=== PATIENT | female | born 1980 | race Two or more races ===

== ENCOUNTER 2024-11-02 22:18 | Emergency (ER) | payer MEDICAID, SELFPAY ==
[2024-11-02 22:43] VITALS: BP 148/83; PULSE 73; RESP 16; TEMP 36.9; O2SAT 99
--- NOTE | 2024-11-02 22:50 | PD.EDALLER ---
ED Allergic Reaction RME/HPI General Chief complaint: Allergic Reaction Stated complaint: HIVES, ITCHING Time Seen by Provider: 11/02/24 22:48 Arrival date/time: 11/02/24 22:18 44F with no significant PMH presents to ED with several days of generalized itchy rash. No URI symptoms. Possibly new soap. Limitations: no limitations Related Data Allergies Allergy/AdvReac Type Severity Reaction Status Date / Time No Known Allergies Allergy Verified 10/20/22 20:08 Review of Systems Review of Systems Systems Reviewed: All systems reviewed, normal except as documented Integumentary/Breasts Skin/Breast: Reports as per HPI, Reports pruritus and Reports rash Past Medical History Social History SMOKING STATUS: Never smoker ED Exam General Limitations: Present no limitations General appearance: Present alert and in no apparent distress Head Head exam: Present atraumatic Neck Neck exam: Present normal inspection, full ROM and trachea midline Chest Chest inspection: Present normal inspection and symmetric chest wall rise Extremities Exam Extremities exam: Present normal inspection and full ROM Back Exam Back exam: Present normal inspection and full ROM Neurological Exam Neurological exam: Present alert and oriented X3 Psychiatric Psychiatric exam: Present normal affect and normal mood Skin Skin exam: Present warm, dry, intact, normal color and rash Course Quality Measures none Orders Category Date Time Status Dexamethasone Inj [Decadron Inj] Med 11/02/24 22:49 Discontinued 10 mg PO X1 ONE DiphenhydrAMINE [Benadryl] Med 11/02/24 22:49 Discontinued 25 mg PO X1 ONE Famotidine [Pepcid] Med 11/02/24 22:49 Discontinued 20 mg PO X1 ONE Vital Signs Vital signs: Vital Signs Temperature 98.4 F 11/02/24 22:43 Pulse Rate 73 11/02/24 22:43 Respiratory Rate 16 11/02/24 22:43 Blood Pressure 148/83 H 11/02/24 22:43 Pulse Oximetry (%) 99 11/02/24 22:43 Oxygen Delivery Method Room Air 11/02/24 22:43 O2 at 99% on RA and WNLs Allergic Reaction MDM Narrative MDM Narrative:: 44F with no significant PMH presents to ED with several days of generalized itchy rash. No URI symptoms. Possibly new soap. Physical exam reveals generalized rash, some urticarial, others not. Normal WOB. Patient is afebrile, calm, and alert. Marinat edilmad. Patient data External records reviewed:: [facility] previous records Clinical information provided by:: patient Social determinants that could affect healthcare access:: none Patient has the following chronic illnesses:: none How is presenting disease/condition affected by chronic disease/condition?: no chronic disease Evaluation data The following diagnostics were reviewed and interpreted by me:: other (specify) (none) Lab and/or radiology exams considered but not ordered:: not ordered Interpretation Summary: n/a Medications / Prescriptions Medications or Prescriptions considered but not ordered:: ordered Medication administrations:: Medication Administration History Discontinued Medications Dexamethasone Sodium Phosphate (Dexamethasone Sod Phos Inj 10 Mg/Ml Vial) 10 mg PO X1 ONE Stop: 11/02/24 22:50 Last Admin: 11/02/24 23:11 Dose: 10 mg Documented By: UMESH Diphenhydramine HCl (Diphenhydramine 25 Mg Capsule) 25 mg PO X1 ONE Stop: 11/02/24 22:50 Last Admin: 11/02/24 23:11 Dose: 25 mg Documented By: UMESH Famotidine (Famotidine 20 Mg Tablet) 20 mg PO X1 ONE Stop: 11/02/24 22:50 Last Admin: 11/02/24 23:11 Dose: 20 mg Documented By: UMESH above Consultations Consultation(s) initiated? (list below): No Diagnosis Differential Diagnosis allergic reaction: anaphylaxis, allergic reaction, angioedema, contact dermatitis, adverse reaction to drug, viral enanthem, urticaria and other (dermatitis) Most likely diagnosis given after review of the tests above:: dermatitis Admission Indicated Admission indicated?: not indicated Admission Request Was there a request for admission?: No Disposition Plan Disposition Plan: other (specify) (eloped) Discharge Plan Plan Patient Disposition: Elopement Prescriptions/Referrals Referrals: No Primary/Family,Physician [Primary Care Provider] - In 1 week Problem List Clinical Impression: Dermatitis Patient/Caregiver Discharge Instructions Print Language: Upper Sorbian TAYLOR/GILMA Supervising Physician RADHA Supervising Physician: Dr. Dacosta
[2024-11-02] MEDS: DEXAMETHASONE SOD PHOS INJ 10 MG/ML VIAL PO (23:11)
[2024-11-02] MEDS: FAMOTIDINE 20 MG TABLET PO (23:11)
== END 2024-11-02 23:45 | disposition left against medical advice (07) ==
LOC: SERX 23:30
PROVIDERS: Emergency Provider Emergency Medicine
DX: L30.9 Dermatitis, unspecified (principal); Z53.29 Procedure and treatment not carried out because of patient's decision for other reasons
CPT/HCPCS: 99283; J1100; A9270

== ENCOUNTER 2024-11-07 15:56 | Emergency (ER) | payer MEDICAID, SELFPAY ==
[2024-11-07 16:02] VITALS: BP 129/87; PULSE 89; RESP 16; TEMP 36.9; O2SAT 99; BMI 26.0
--- NOTE | 2024-11-07 16:11 | PD.EDRME ---
Rapid Medical Screening Exam RME Arrival date/time: 11/07/24 15:56 44-year-old female presents emergency department today for complaints of pruritic rash ongoing for more than a week Chief Complaint: Skin/Abscess/Foreign Body Vital signs: Vital Signs Temperature 98.4 F 11/07/24 16:02 Pulse Rate 89 11/07/24 16:02 Respiratory Rate 16 11/07/24 16:02 Blood Pressure 129/87 H 11/07/24 16:02 Pulse Oximetry (%) 99 11/07/24 16:02 Oxygen Delivery Method Room Air 11/07/24 16:02
[2024-11-07 16:21] LABS: Basophils # (Auto) 0.1 Thou/mm3 (0.0-0.2); Basophils % (Auto) 1 % (0-2.5); Eosinophils # (Auto) 0.8 Thou/mm3 (0.0-0.5); Eosinophils % (Auto) 8 % (0-10); Hematocrit 38.7 % (36.0-46.0); Hemoglobin 13.7 g/dL (12.0-16.0); Immature Granulocytes Auto 0.02 Thou/mm3 (0.00-0.00); Lymphocytes # (Auto) 2.8 Thou/mm3 (1.0-4.8); Lymphocytes % (Auto) 28 % (10-50); Mean Corpuscular HGB Conc 35.4 g/dl (31.0-37.0); Mean Corpuscular Hemoglobin 29.1 pg (25.0-35.0); Mean Corpuscular Volume 82 fL (80-100); Monocytes # (Auto) 0.7 Thou/mm3 (0.0-0.8); Monocytes % (Auto) 7 % (0-12); Neutrophils # (Auto) 5.6 Thou/mm3 (1.8-7.7); Neutrophils % (Auto) 56 % (37-80); Nucleated Red Blood Cell # 0.00 Thou/mm3 (0.00-0.00); Nucleated Red Blood Cell % 0 /100 WBC (0); Platelet Count 216 Thou/mm3 (140-440); RDW Standard Deviation 39.1 fL (36.4-46.3); Red Blood Count 4.70 Miln/mm3 (4.00-5.20); White Blood Count 10.1 Thou/mm3 (3.6-11.0)
[2024-11-07] MEDS: DEXAMETHASONE SOD PHOS INJ 10 MG/ML VIAL IM (16:25)
[2024-11-07] MEDS: FAMOTIDINE 20 MG TABLET 40 MG PO (16:25)
[2024-11-07 16:39] LABS: Alanine Aminotransferase 31 U/L (10-49); Albumin, Serum 4.3 gm/dL (3.5-5.0); Albumin/Globulin Ratio 1.7 (1.2-2.2); Alkaline Phosphatase 91 U/L (46-116); Anion Gap 10 (7-16); Aspartate Amino Transferase 26 U/L (0-34); BUN/Creatinine Ratio 13 Ratio (12-20); Bilirubin,Total 0.4 mg/dL (0.3-1.2); Blood Urea Nitrogen 9 mg/dL (9-23); Calcium 9.4 mg/dL (8.3-10.6); Calcium (Corrected) 9.4 mg/dL (8.5-10.1); Carbon Dioxide 27.2 mMol/L (20.0-31.0); Chloride 101 mMol/L (98-107); Creatinine (Component) 0.7 mg/dL (0.6-1.3); Estimated Creatinine Clearance 86.1 mL/min (>60); Globulin 2.5 gm/dL (2.3-3.5); Glucose 159 mg/dL (74-106); Osmolality,Calculated 277 (275-295); Potassium 3.6 mMol/L (3.4-5.1); Sodium 138 mMol/L (136-145); Total Protein 6.8 gm/dL (5.7-8.2); eGFR > 60 See Note
--- NOTE | 2024-11-07 19:14 | PD.EDSKIN ---
ED Skin Abcess FB-RME/HPI General Chief complaint: Skin/Abscess/Foreign Body Stated complaint: RASH Time Seen by Provider: 11/07/24 19:05 Arrival date/time: 11/07/24 15:56 RME / HPI RME / HPI narrative: 44-year-old female presents emergency department today for complaints of pruritic rash ongoing for more than a week, scattered all over, with itchiness, severity moderate. Patient denies any difficulty swallowing or shortness of breath. Denies any other complaints no medication was taken prior to ER visit. Related Data Previous Rx's ?Medication ?Instructions ?Recorded diphenhydramine HCl 25 mg capsule 25 mg PO TID PRN allergic reaction 11/07/24 (Benadryl) #20 caps famotidine 40 mg tablet (Pepcid) 40 mg PO QDAY #7 tabs 11/07/24 prednisone 50 mg tablet 50 mg PO QDAY #7 tabs 11/07/24 Allergies Allergy/AdvReac Type Severity Reaction Status Date / Time No Known Allergies Allergy Verified 10/20/22 20:08 Review of Systems Review of Systems Narrative Review of Systems: Review of system reviewed and within normal limits except mentioned in HPI ED Exam Narrative Physical exam: VITAL SIGNS: Reviewed. GENERAL APPEARANCE: Alert and interactive, follows commands, no acute distress, HEAD AND FACE: Non-traumatic. ENT: PERRL, pink conjunctivitis, eyelid no trauma, Mucous membrane moist. NECK: Supple, nontender, no nuchal rigidity. CHEST: No tenderness, no crepitus, no paradoxical movement, no retractions. LUNGS: Clear, well ventilated, symmetric, no rales, no wheezing, no ronchi, no stridor, good breath sounds bilaterally. HEART: Regular rate, regular rhythm, no murmur, no gallops. ABDOMEN: Soft, positive bowel sounds, nondistended, no guarding, nontender, no rebound, no masses, RECTAL: Deferred. GENITAL: Deferred. NEUROLOGICAL: Gross motor function intact sensory function intact, Appropriate for age. MUSCULOSKELETAL: low back nontender, full range of motion. EXTREMITIES: Nontender, full range of motion. SKIN: Color pink, dry, multiple erythematous rashes scattered over, no lacerations, no abrasions, no contusions. LYMPHATICS: Deferred. Course Quality Measures none Orders Category Date Time Status CBC Stat Lab 11/07/24 16:15 Completed CMP [Comprehensive Metabolic Panel] Stat Lab 11/07/24 16:15 Completed Dexamethasone Inj [Decadron Inj] Med 11/07/24 16:09 Discontinued 10 mg IM X1 ONE DiphenhydrAMINE [Benadryl] Med 11/07/24 16:09 Discontinued 50 mg PO X1 ONE Famotidine [Pepcid] Med 11/07/24 16:09 Discontinued 40 mg PO X1 ONE Vital Signs Vital signs: Vital Signs Temperature 98.4 F 11/07/24 16:02 Pulse Rate 89 11/07/24 16:02 Respiratory Rate 16 11/07/24 16:02 Blood Pressure 129/87 H 11/07/24 16:02 Pulse Oximetry (%) 99 11/07/24 16:02 Oxygen Delivery Method Room Air 11/07/24 16:02 Skin / Abscess / Foreign Body MDM Narrative MDM Narrative:: 44-year-old female presents emergency department today for complaints of pruritic rash ongoing for more than a week, scattered all over, with itchiness, severity moderate. Patient denies any difficulty swallowing or shortness of breath. Denies any other complaints no medication was taken prior to ER visit. Patient's laboratory workup all came back unremarkable. Results discussed with the patient. Patient was given Decadron, Benadryl and Pepcid with significant improvement of symptoms. Patient stable for discharge home. Patient data External records reviewed:: None Clinical information provided by:: none Social determinants that could affect healthcare access:: none Patient has the following chronic illnesses:: None How is presenting disease/condition affected by chronic disease/condition?: no chronic disease Evaluation data The following diagnostics were reviewed and interpreted by me:: lab results Lab and/or radiology exams considered but not ordered:: None Interpretation Summary: See results MDM Medications / Prescriptions Medications or Prescriptions considered but not ordered:: None Medication administrations:: Medication Administration History Discontinued Medications Dexamethasone Sodium Phosphate (Dexamethasone Sod Phos Inj 10 Mg/Ml Vial) 10 mg IM X1 ONE Stop: 11/07/24 16:10 Last Admin: 11/07/24 16:25 Dose: 10 mg Documented By: NANETTE Diphenhydramine HCl (Diphenhydramine 25 Mg Capsule) 50 mg PO X1 ONE Stop: 11/07/24 16:10 Last Admin: 11/07/24 16:24 Dose: 50 mg Documented By: NANETTE Famotidine (Famotidine 20 Mg Tablet) 40 mg PO X1 ONE Stop: 11/07/24 16:10 Last Admin: 11/07/24 16:25 Dose: 40 mg Documented By: NANETTE Decshara Benadryl Pepcid Consultations Consultation(s) initiated? (list below): No Diagnosis Skin/Abscess Differential Diagnosis: abscess of skin or subcutaneous tissue, viral exanthem and urticaria Most likely diagnosis given after review of the tests above:: Allergic rash Admission Indicated Admission indicated?: not indicated Explain why admission is indicated or not indicated:: Stable Admission Request Was there a request for admission?: No Disposition Plan Disposition Plan: Discharge Discharge Attestation Discharge Attestation: The patient and all family members were given an opportunity to ask questions and understood the discharge instructions. Discharge instructions specifically effects, indications for sooner follow up or return to the emergency department, and the expected course of current diagnosis. Patient condition: Stable Discharge Plan Plan Patient Disposition: HOME (Self Care) Discharge Disposition comment: Stable Prescriptions/Referrals Prescriptions/Med Rec: New prednisone 50 mg tablet 50 mg PO QDAY Qty: 7 0RF famotidine [Pepcid] 40 mg tablet 40 mg PO QDAY Qty: 7 0RF diphenhydramine HCl [Benadryl] 25 mg capsule 25 mg PO TID PRN (Reason: allergic reaction) Qty: 20 0RF Referrals: Roderick Suarez MD [Primary Care Provider, Family Practice] - In 1 week Problem List Clinical Impression: Allergic rash present on examination Patient/Caregiver Discharge Instructions Discharge Activity: activity as tolerated Education Materials: Allergy Overview Print Language: Tajik Stand Alone Forms: Iveth Award Info., Patient Portal Info Letter PA/FISCAL MANAGER Supervising Physician PA/FISCAL MANAGER Supervising Physician: Dr Steel
== END 2024-11-07 19:29 | disposition home or self-care (01) ==
PROVIDERS: Nurse Practitioner Primary Care; Emergency Provider Emergency Medicine; PCP Family Medicine
DX: R21 Rash and other nonspecific skin eruption (principal); T78.40XA Allergy, unspecified, initial encounter
CPT/HCPCS: 36415; 80053; 85025; 96372; 99283; J1100; A9270